=== PATIENT | female | born 1945 | race African-American/Black ===

== ENCOUNTER 2024-02-26 10:35 | Inpatient (IN) | payer OTHER ==
[~2024-02-26] VITALS: Ht 154.9 cm; Wt 50.5 kg
[2024-02-26] MEDS ORDERED: DOCUSATE SOD 100 MG CAP PO PRN (14:45)
[2024-02-26] MEDS ORDERED: MORPHINE SULFATE INJ 2 MG/ml SYRG IV PRN (14:45)
[2024-02-26 14:57] LABS: Basophils # (auto) 0 10 ^3/uL (0-0.2); Basophils % (auto) 0.1 % (0.0-2.0); Eosinophils # (auto) 0 10 ^3/uL (0-0.8); Hemoglobin 10.2 g/dL (12.2-16.2); Lymphocytes # (auto) 0.9 10 ^3/uL (0.4-5.4); Lymphocytes % (auto) 6.3 % (10.0-50.0); Mean Corpuscular Hemoglobin 28.4 pg (28.0-32.0); Mean Corpuscular Volume 91.5 fL (80.0-100.0); Monocytes # (auto) 1.1 10 ^3/uL (0-1.3); Neutrophils # (auto) 11.8 10 ^3/uL (1.6-8.6); Neutrophils % (auto) 85.6 % (37.0-80.0); Nucleated Red Blood Cells % 0.6 %; Red Cell Distribution Width 17.8 % (11.8-14.3); White Blood Cell 13.8 10^3/uL (4.4-10.8)
[2024-02-26 15:07] LABS: Alanine Aminotransferase 12 U/L (7-40); Albumin 3.4 g/dL (3.2-4.8); Alkaline Phosphatase 92 U/L (46-116); Anion Gap 18 (5-15); Aspartate Aminotransferase 20 U/L (13-40); BUN/Creatinine Ratio 5.2 (10.0-20.0); Blood Urea Nitrogen 16 mg/dL (9-23); Calcium 8.6 mg/dL (8.7-10.4); Carbon Dioxide 21 mmol/L (20-30); Chloride 95 mmol/L (98-107); Glucose 128 mg/dL (74-106); Potassium 3.4 mmol/L (3.5-5.1); Sodium 134 mmol/L (136-145)
[2024-02-26 15:08] LABS: Bilirubin, Total < 0.2 mg/dL (0.2-1.0); Total Protein 5.7 g/dL (5.7-8.2)
[2024-02-26 15:11] LABS: Magnesium 2.1 mg/dL (1.6-2.6)
[2024-02-26 16:24] LABS: Phosphorus 3.4 mg/dL (2.4-5.1)
[2024-02-26] MEDS: LABETALOL HCL 5 MG/ML 4ML SYRINGE IV ONE (16:29)
[2024-02-26] MEDS: PANTOPRAZOLE 40 MG/10 ML VIAL INJ IV ONE (16:29)
[2024-02-26] MEDS: DICYCLOMINE HCL (10MG/ML) 2 ML AMPULE IM ONE (16:29)
[2024-02-26] MEDS: DICYCLOMINE HCL 10 MG CAP PO SCH (18:00)
[2024-02-26 19:20] VITALS: PULSE 80; RESP 20; O2SAT 98
[2024-02-27] VITALS (7 sets, daily range): BP systolic 112–154; BP diastolic 42–64; PULSE 77–84; RESP 14–17; TEMP 83–98.6; O2SAT 95–99
[2024-02-27] MEDS ORDERED: DICYCLOMINE HCL 10 MG CAP PO SCH (08:00)
[2024-02-27] MEDS: DICYCLOMINE HCL 10 MG CAP PO ONE (09:12)
[2024-02-27] MEDS: PANTOPRAZOLE 40 MG/10 ML VIAL INJ IV SCH (09:12)
[2024-02-27] MEDS: ENOXAPARIN SOD 30 MG/0.3 ML SYRINGE SC SCH (09:13)
[2024-02-27] MEDS: ONDANSETRON HCL 4 MG/2 ML VIAL IV PRN (09:21)
[2024-02-27 10:13] LABS: Basophils # (auto) 0 10 ^3/uL (0-0.2); Basophils % (auto) 0.2 % (0.0-2.0); Eosinophils # (auto) 0 10 ^3/uL (0-0.8); Hematocrit 35.9 % (36.0-46.0); Hemoglobin 10.8 g/dL (12.2-16.2); Lymphocytes # (auto) 0.9 10 ^3/uL (0.4-5.4); Lymphocytes % (auto) 6.6 % (10.0-50.0); Mean Corpuscular Hgb Conc. 30.2 g/dL (32.0-36.0); Mean Corpuscular Volume 92.7 fL (80.0-100.0); Monocytes % (auto) 7.9 % (0.0-12.0); Neutrophils # (auto) 11.1 10 ^3/uL (1.6-8.6); Neutrophils % (auto) 85.3 % (37.0-80.0); Nucleated Red Blood Cells % 0.1 %; Red Blood Cells 3.87 10^6/uL (4.0-5.20); Red Cell Distribution Width 17.9 % (11.8-14.3); White Blood Cell 13.1 10^3/uL (4.4-10.8)
[2024-02-27 10:14] LABS: Albumin 3.2 g/dL (3.2-4.8); Alkaline Phosphatase 86 U/L (46-116); Anion Gap 17 (5-15); Aspartate Aminotransferase 23 U/L (13-40); BUN/Creatinine Ratio 5.6 (10.0-20.0); Bilirubin, Total < 0.2 mg/dL (0.2-1.0); Calcium 8.4 mg/dL (8.5-10.1); Carbon Dioxide 19 mmol/L (20-30); Chloride 96 mmol/L (98-107); Glucose 174 mg/dL (74-106); Potassium 3.7 mmol/L (3.5-5.1); Sodium 132 mmol/L (136-145); Total Protein 5.7 g/dL (5.7-8.2)
[2024-02-27 11:44] LABS: Alanine Aminotransferase < 9 U/L (7-40); Blood Urea Nitrogen 26 mg/dL (9-23)
[2024-02-27] MEDS: DICYCLOMINE HCL 10 MG CAP PO SCH (14:11)
[2024-02-27] MEDS: ATORVASTATIN 20 MG TAB PO SCH (21:02)
[2024-02-27] MEDS ORDERED: ALEN70TA74 PO (21:25)
[2024-02-27] MEDS ORDERED: CLOT1CRE51 TOP (21:26)
[2024-02-27] MEDS ORDERED: ATOR-507 PO (21:26)
[2024-02-27] MEDS ORDERED: FURO20TA3 PO (21:27)
[2024-02-27] MEDS ORDERED: HYDR50TA47 PO (21:28)
[2024-02-27] MEDS ORDERED: SITA100T7 PO (21:29)
[2024-02-27] MEDS ORDERED: LISI40TA16 PO (21:29)
[2024-02-27] MEDS ORDERED: METH5TAB98 PO (21:31)
[2024-02-27] MEDS ORDERED: NIFE90TA75 PO (21:31)
[2024-02-27] MEDS ORDERED: SEVE800T8 PO (21:31)
[2024-02-28] VITALS (8 sets, daily range): BP systolic 122–170; BP diastolic 50–67; PULSE 69–75; RESP 14–17; TEMP 97.8–99; O2SAT 93–99
[2024-02-28] MEDS ORDERED: SODIUM CHL 0.9% 1000 ML BAG XX ONE (07:00)
[2024-02-28] MEDS: NIFEdipine ER 30 MG TAB PO SCH (08:55)
[2024-02-29 01:05] VITALS: BP 131/62; PULSE 71; RESP 17; TEMP 98.7; O2SAT 96
[2024-02-29 05:04] VITALS: BP 141/60; PULSE 74; RESP 17; TEMP 99.2; O2SAT 96
[2024-02-29 08:00] VITALS: PULSE 69; O2SAT 99
[2024-02-29 09:00] VITALS: BP 139/51; PULSE 70; RESP 17; TEMP 98.6; O2SAT 96
[2024-02-29] MEDS ORDERED: ATOR-507 PO (09:19)
[2024-02-29] MEDS ORDERED: NIFE1TAB30 PO (09:19)
[2024-02-29] MEDS ORDERED: PANT40T PO (09:19)
[2024-02-29 13:00] VITALS: BP 153/41; PULSE 69; RESP 16; TEMP 98.2; O2SAT 94
[2024-02-29 17:00] VITALS: BP 158/47; PULSE 66; RESP 17; TEMP 98.2; O2SAT 97
[2024-03-03 09:29] LABS: Hepatitis B Surface Antibody Positive (Negative)
[2024-03-03 09:41] LABS: Hepatitis B Surface Antigen Negative (Negative)
== END 2024-02-29 19:30 | disposition home or self-care (01) | DRG 871 ==
LOC: ER 10:35 → OVERFLOW 15:50 → TELE 18:30 → TELE-EAST 02-27 04:10
PROVIDERS: ADMIT Nurse Practitioner Family; ATTEND Family Medicine
PROC: 05H933Z Insertion of Infusion Device into Right Brachial Vein, Percutaneous Approach (ICD-10-PCS; 2024-02-26)
PROC: B54MZZA Ultrasonography of Right Upper Extremity Veins, Guidance (ICD-10-PCS; 2024-02-26)
PROC: 5A1D70Z Performance of Urinary Filtration, Intermittent, Less than 6 Hours Per Day (ICD-10-PCS; principal; 2024-02-28)
DX: A41.9 Sepsis, unspecified organism (principal); I21.4 Non-ST elevation (NSTEMI) myocardial infarction; N18.6 End stage renal disease; I12.0 Hypertensive chronic kidney disease with stage 5 chronic kidney disease or end stage renal disease; A09 Infectious gastroenteritis and colitis, unspecified; K80.20 Calculus of gallbladder without cholecystitis without obstruction; D63.1 Anemia in chronic kidney disease; F03.90 Unspecified dementia, unspecified severity, without behavioral disturbance, psychotic disturbance, mood disturbance, and anxiety; E11.22 Type 2 diabetes mellitus with diabetic chronic kidney disease; E05.90 Thyrotoxicosis, unspecified without thyrotoxic crisis or storm; E78.5 Hyperlipidemia, unspecified; I16.0 Hypertensive urgency; I25.2 Old myocardial infarction; Z99.2 Dependence on renal dialysis; Z79.4 Long term (current) use of insulin; Z87.19 Personal history of other diseases of the digestive system
CPT/HCPCS: 36415; 74176; 80053; 83735; 84100; 84443; 84484; 85025; 86706; 87040; 87340; 90935; 93306; 93971; 96372; 96374; 96375; C9113; G0378; J1642; J2405; J3490

== ENCOUNTER 2024-05-17 14:16 | Inpatient (IN) | payer OTHER ==
[~2024-05-17] VITALS: Ht 149.9 cm; Wt 57.3 kg
[~2024-05-17 14:16] MED LIST: ALEN70TA74 PO; ATOR-507 PO; CLOT1CRE51 TOP; FURO20TA3 PO; HYDR50TA47 PO; LISI40TA16 PO; METH5TAB98 PO; NIFE1TAB30 PO; NIFE90TA75 PO; PANT40T PO; SEVE800T8 PO; SITA100T7 PO
[2024-05-17 14:38] LABS: Basophils # (auto) 0.1 10 ^3/uL (0-0.2); Basophils % (auto) 0.7 % (0.0-2.0); Eosinophils # (auto) 0.1 10 ^3/uL (0-0.8); Eosinophils % (auto) 1.6 % (0.0-7.0); Hematocrit 33.7 % (36.0-46.0); Lymphocytes # (auto) 0.9 10 ^3/uL (0.4-5.4); Lymphocytes % (auto) 12.2 % (10.0-50.0); Mean Corpuscular Hemoglobin 29.6 pg (28.0-32.0); Mean Corpuscular Hgb Conc. 32.7 g/dL (32.0-36.0); Mean Corpuscular Volume 90.6 fL (80.0-100.0); Monocytes # (auto) 0.5 10 ^3/uL (0-1.3); Monocytes % (auto) 7.5 % (0.0-12.0); Neutrophils # (auto) 5.5 10 ^3/uL (1.6-8.6); Nucleated Red Blood Cells % 0.1 %; Red Blood Cells 3.72 10^6/uL (4.0-5.20); Red Cell Distribution Width 17.8 % (11.8-14.3); White Blood Cell 7.1 10^3/uL (4.4-10.8)
[2024-05-17 14:56] LABS: Alanine Aminotransferase 62 U/L (7-40); Albumin 3.6 g/dL (3.2-4.8); Alkaline Phosphatase 112 U/L (46-116); Anion Gap 9 (5-15); Aspartate Aminotransferase 28 U/L (13-40); BUN/Creatinine Ratio 4.5 (10.0-20.0); Blood Urea Nitrogen 21 mg/dL (9-23); Calcium 8.6 mg/dL (8.7-10.4); Carbon Dioxide 26 mmol/L (20-30); Chloride 105 mmol/L (98-107); Glucose 179 mg/dL (74-106); Potassium 4.5 mmol/L (3.5-5.1); Sodium 140 mmol/L (136-145)
[2024-05-17 14:57] LABS: Bilirubin, Total 0.2 mg/dL (0.2-1.0); Total Protein 6.1 g/dL (5.7-8.2)
[2024-05-17] MEDS: ASPirin 81 mg TAB PO ONE (15:40)
[2024-05-17] MEDS: ACETAMINOPHEN 325 MG TAB PO ONE (15:40)
[2024-05-17 16:03] LABS: Basophils # (auto) 0.1 10 ^3/uL (0-0.2); Eosinophils # (auto) 0.1 10 ^3/uL (0-0.8); Eosinophils % (auto) 1.6 % (0.0-7.0); Hematocrit 35.2 % (36.0-46.0); Hemoglobin 11.6 g/dL (12.2-16.2); Lymphocytes % (auto) 13.6 % (10.0-50.0); Mean Corpuscular Hgb Conc. 32.9 g/dL (32.0-36.0); Mean Corpuscular Volume 91.3 fL (80.0-100.0); Monocytes # (auto) 0.6 10 ^3/uL (0-1.3); Monocytes % (auto) 8.4 % (0.0-12.0); Neutrophils # (auto) 5.8 10 ^3/uL (1.6-8.6); Neutrophils % (auto) 75.4 % (37.0-80.0); Nucleated Red Blood Cells % 0.1 %; Red Blood Cells 3.86 10^6/uL (4.0-5.20); White Blood Cell 7.7 10^3/uL (4.4-10.8)
[2024-05-17 16:23] LABS: Alanine Aminotransferase 63 U/L (7-40); Albumin 3.9 g/dL (3.2-4.8); Alkaline Phosphatase 119 U/L (46-116); Anion Gap 9 (5-15); Aspartate Aminotransferase 26 U/L (13-40); Blood Urea Nitrogen 14 mg/dL (9-23); Calcium 8.9 mg/dL (8.7-10.4); Carbon Dioxide 24 mmol/L (20-30); Chloride 104 mmol/L (98-107); Glucose 188 mg/dL (74-106); Potassium 4.5 mmol/L (3.5-5.1); Sodium 137 mmol/L (136-145)
[2024-05-17 16:24] LABS: Bilirubin, Total 0.2 mg/dL (0.2-1.0); Total Protein 6.9 g/dL (5.7-8.2)
[2024-05-17] MEDS ORDERED: ONDANSETRON HCL 4 MG/2 ML VIAL IV PRN (17:45)
[2024-05-17] MEDS ORDERED: MORPHINE SULFATE INJ 2 MG/ml SYRG IV PRN (17:45)
[2024-05-17] MEDS ORDERED: NITROGLYCERIN 0.4 MG SL TAB SL PRN (17:45)
[2024-05-17 19:00] VITALS: PULSE 57; RESP 12; O2SAT 97
[2024-05-17] MEDS: SODIUM CHLORIDE 0.9% 1,000 ML IV SCH (19:11)
[2024-05-17] MEDS: hydrALAZINE HCL 20 MG/ML VL IV PRN (22:06)
[2024-05-17 23:23] VITALS: BP 172/79; PULSE 81; RESP 19; TEMP 98.2; O2SAT 93
[2024-05-17 23:34] VITALS: BP 172/79; PULSE 81; RESP 19; TEMP 98.4; O2SAT 93
[2024-05-18] VITALS (13 sets, daily range): BP systolic 140–203; BP diastolic 54–103; PULSE 64–89; RESP 16–26; TEMP 97.9–98.9; O2SAT 94–97
[2024-05-18] MEDS: HYDROcodone-ACET 5/325MG TAB PO PRN (09:24)
[2024-05-18] MEDS: SODIUM CHL 0.9% 1000 ML BAG XX ONE (12:45)
[2024-05-18] MEDS: ASPirin 81 mg TAB PO SCH (18:17)
[2024-05-18] MEDS: CLOPIDOGREL BISULFATE 75 MG TAB PO SCH (18:17)
[2024-05-18] MEDS: FUROSEMIDE 20 MG TAB PO ONE (18:18)
[2024-05-18] MEDS: LISINOPRIL 20 MG TAB PO ONE (18:19)
[2024-05-18] MEDS: ACETAMINOPHEN 325 MG TAB PO PRN (21:38)
[2024-05-19] VITALS (7 sets, daily range): BP systolic 166–216; BP diastolic 54–80; PULSE 70–75; RESP 16–24; TEMP 36.8; O2SAT 94–97
[2024-05-19 07:24] LABS: Anion Gap 6 (5-15); Calcium 9.3 mg/dL (8.7-10.4); Carbon Dioxide 28 mmol/L (20-30); Chloride 106 mmol/L (98-107); Potassium 4.8 mmol/L (3.5-5.1); Sodium 140 mmol/L (136-145)
[2024-05-19 07:28] LABS: Basophils # (auto) 0.1 10 ^3/uL (0-0.2); Basophils % (auto) 1.1 % (0.0-2.0); Eosinophils # (auto) 0.1 10 ^3/uL (0-0.8); Eosinophils % (auto) 1.2 % (0.0-7.0); Hematocrit 31.3 % (36.0-46.0); Hemoglobin 10.5 g/dL (12.2-16.2); Lymphocytes % (auto) 13.5 % (10.0-50.0); Mean Corpuscular Hemoglobin 30.1 pg (28.0-32.0); Mean Corpuscular Hgb Conc. 33.4 g/dL (32.0-36.0); Mean Corpuscular Volume 90.2 fL (80.0-100.0); Monocytes # (auto) 0.6 10 ^3/uL (0-1.3); Monocytes % (auto) 7.7 % (0.0-12.0); Neutrophils # (auto) 5.5 10 ^3/uL (1.6-8.6); Neutrophils % (auto) 76.5 % (37.0-80.0); Red Blood Cells 3.47 10^6/uL (4.0-5.20); Red Cell Distribution Width 17.7 % (11.8-14.3); White Blood Cell 7.2 10^3/uL (4.4-10.8)
[2024-05-19 07:30] LABS: BUN/Creatinine Ratio 5.2 (10.0-20.0); Blood Urea Nitrogen 21 mg/dL (9-23); Glucose 102 mg/dL (74-106); Magnesium 1.8 mg/dL (1.6-2.6)
[2024-05-19] MEDS: FUROSEMIDE 20 MG TAB PO SCH (09:04)
[2024-05-19] MEDS: LISINOPRIL 20 MG TAB PO SCH (09:06)
[2024-05-19] MEDS: NIFEdipine ER 30 MG TAB PO SCH (09:11)
[2024-05-19 09:30] LABS: Hepatitis B Surface Antibody Positive (Negative)
[2024-05-19 09:42] LABS: Hepatitis B Surface Antigen Negative (Negative)
[2024-05-19] MEDS ORDERED: CLOP75TA28 PO (16:14)
[2024-05-19] MEDS ORDERED: ASPI-543 PO (16:14)
[2024-05-19] MEDS: hydrALAZINE HCL 25 MG TAB PO ONE (17:17)
== END 2024-05-19 19:10 | disposition home health service (06) | DRG 280 ==
LOC: ER 14:20 → TELE 17:34 → TELE-CENTR 23:10
PROVIDERS: ADMIT Internal Medicine; ATTEND Internal Medicine
PROC: 5A1D70Z Performance of Urinary Filtration, Intermittent, Less than 6 Hours Per Day (ICD-10-PCS; principal; 2024-05-18)
DX: I13.2 Hypertensive heart and chronic kidney disease with heart failure and with stage 5 chronic kidney disease, or end stage renal disease (principal); I50.33 Acute on chronic diastolic (congestive) heart failure; I21.A1 Myocardial infarction type 2; N18.6 End stage renal disease; D63.1 Anemia in chronic kidney disease; E11.22 Type 2 diabetes mellitus with diabetic chronic kidney disease; F03.90 Unspecified dementia, unspecified severity, without behavioral disturbance, psychotic disturbance, mood disturbance, and anxiety; I25.10 Atherosclerotic heart disease of native coronary artery without angina pectoris; E78.5 Hyperlipidemia, unspecified; E83.39 Other disorders of phosphorus metabolism; E03.9 Hypothyroidism, unspecified; Z82.49 Family history of ischemic heart disease and other diseases of the circulatory system; Z99.2 Dependence on renal dialysis; Z79.82 Long term (current) use of aspirin; Z79.899 Other long term (current) drug therapy; Z79.4 Long term (current) use of insulin
CPT/HCPCS: 36415; 71045; 80048; 80053; 83735; 84443; 84484; 85025; 86706; 87081; 87340; 90935; 93005; 97110; 97116; 97163; 97530; G0378

== ENCOUNTER 2024-06-04 17:20 | Inpatient (IN) | payer OTHER ==
[~2024-06-04] VITALS: Ht 149.9 cm; Wt 53.4 kg
[~2024-06-04 17:20] MED LIST changes: +ASPI-543 PO; +CLOP75TA28 PO; -CLOT1CRE51 TOP; -NIFE1TAB30 PO
[2024-06-04 18:13] LABS: Basophils # (auto) 0.1 10 ^3/uL (0-0.2); Basophils % (auto) 1.2 % (0.0-2.0); Eosinophils # (auto) 0.3 10 ^3/uL (0-0.8); Monocytes # (auto) 0.6 10 ^3/uL (0-1.3); Monocytes % (auto) 7.7 % (0.0-12.0)
[2024-06-04 18:16] LABS: Eosinophils % (auto) 3.6 % (0.0-7.0); Hematocrit 21.5 % (36.0-46.0); Lymphocytes % (auto) 26.4 % (10.0-50.0); Mean Corpuscular Hemoglobin 30.1 pg (28.0-32.0); Mean Corpuscular Hgb Conc. 32.4 g/dL (32.0-36.0); Neutrophils # (auto) 4.6 10 ^3/uL (1.6-8.6); Neutrophils % (auto) 61.1 % (37.0-80.0); Nucleated Red Blood Cells % 0.2 %; Red Blood Cells 2.31 10^6/uL (4.0-5.20); Red Cell Distribution Width 16.8 % (11.8-14.3); White Blood Cell 7.5 10^3/uL (4.4-10.8)
[2024-06-04] MEDS: cloNIDine HCL 0.1 MG TAB PO ONE (21:14)
[2024-06-04 23:25] VITALS: BP 134/35; PULSE 68; RESP 16; TEMP 98.5
[2024-06-04 23:45] VITALS: BP 141/35; PULSE 65; RESP 17; TEMP 98.6
[2024-06-05] VITALS (8 sets, daily range): BP systolic 149–171; BP diastolic 41–69; PULSE 61–71; RESP 15–20; TEMP 97.9–98.8; O2SAT 95–98
[2024-06-05 03:44] LABS: Chloride 107 mmol/L (98-107); Potassium 4.5 mmol/L (3.5-5.1); Sodium 141 mmol/L (136-145)
[2024-06-05 03:45] LABS: Anion Gap 5 (5-15); Carbon Dioxide 29 mmol/L (20-30)
[2024-06-05 03:47] LABS: Hemoglobin 7.4 g/dL (12.2-16.2)
[2024-06-05 03:49] LABS: Hematocrit 22.2 % (36.0-46.0)
[2024-06-05 03:50] LABS: BUN/Creatinine Ratio 4.7 (10.0-20.0); Blood Urea Nitrogen 15 mg/dL (9-23); Glucose 109 mg/dL (74-106)
[2024-06-05] MEDS ORDERED: ACETAMINOPHEN 325 MG TAB PO PRN (04:15)
[2024-06-05] MEDS ORDERED: MORPHINE SULFATE INJ 2 MG/ml SYRG IV PRN (04:15)
[2024-06-05] MEDS ORDERED: ONDANSETRON HCL 4 MG/2 ML VIAL IV PRN ×2 (04:15→04:30)
[2024-06-05] MEDS ORDERED: cloNIDine HCL 0.1 MG TAB PO PRN (04:15)
[2024-06-05] MEDS ORDERED: NITROGLYCERIN 0.4 MG SL TAB SL PRN (04:15)
[2024-06-05] MEDS ORDERED: HYDROcodone-ACET 5/325MG TAB PO PRN (04:15)
[2024-06-05 04:32] LABS: Basophils # (auto) 0.1 10 ^3/uL (0-0.2); Eosinophils # (auto) 0.1 10 ^3/uL (0-0.8); Lymphocytes # (auto) 1.6 10 ^3/uL (0.4-5.4); Monocytes # (auto) 0.6 10 ^3/uL (0-1.3); Neutrophils # (auto) 3.8 10 ^3/uL (1.6-8.6); White Blood Cell 6.1 10^3/uL (4.4-10.8)
[2024-06-05 04:38] LABS: Basophils % (auto) 1.2 % (0.0-2.0); Hemoglobin 7.4 g/dL (12.2-16.2); Lymphocytes % (auto) 25.9 % (10.0-50.0); Mean Corpuscular Hgb Conc. 33.6 g/dL (32.0-36.0); Mean Corpuscular Volume 92.3 fL (80.0-100.0); Monocytes % (auto) 9.8 % (0.0-12.0); Neutrophils % (auto) 61.1 % (37.0-80.0); Nucleated Red Blood Cells % 0.1 %; Red Blood Cells 2.38 10^6/uL (4.0-5.20); Red Cell Distribution Width 15.9 % (11.8-14.3)
[2024-06-05] MEDS: PANTOPRAZOLE 40mg/50ML NS AE 50 ML IV ONE (04:40)
[2024-06-05] MEDS: hydrALAZINE HCL 20 MG/ML VL IV PRN (04:40)
[2024-06-05] MEDS ORDERED: DEXTROSE (50%) 50ML SYRG IV PRN (05:00)
[2024-06-05] MEDS: ACCU-CHEK COMFORT CURVE STRIP VI SCH (06:23)
[2024-06-05] MEDS: InsuLIN REG 1unit/0.01ml Soln (100units/ml) SC SCH (06:23)
[2024-06-05 10:56] LABS: INR 1.06 (0.9-1.15); Partial Thromboplastin Time 27.5 SEC (24.5-34.5); Prothrombin Time 11.2 sec (9.3-11.8)
[2024-06-05 12:19] LABS: Hemoglobin 7.4 g/dL (12.2-16.2)
[2024-06-05 12:22] LABS: Hematocrit 22.3 % (36.0-46.0)
[2024-06-05] MEDS: SEVELAMER 800 MG TAB PO SCH (12:33)
[2024-06-05] MEDS: hydrALAZINE HCL 25 MG TAB PO SCH (12:33)
[2024-06-05] MEDS: PANTOPRAZOLE 40 MG/10 ML VIAL INJ IV SCH (12:33)
[2024-06-05 19:40] LABS: Hemoglobin 8.2 g/dL (12.2-16.2)
[2024-06-05] MEDS: ATORVASTATIN 20 MG TAB PO SCH (20:54)
[2024-06-06] VITALS (7 sets, daily range): BP systolic 137–202; BP diastolic 61–81; PULSE 59–69; RESP 15–18; TEMP 97.6–99; O2SAT 95–100
[2024-06-06 00:40] LABS: Hematocrit 22.5 % (36.0-46.0); Hemoglobin 7.4 g/dL (12.2-16.2)
[2024-06-06] MEDS: SODIUM CHL 0.9% 1000 ML BAG XX ONE (07:00)
[2024-06-06 07:09] LABS: Anion Gap 8 (5-15); Carbon Dioxide 26 mmol/L (20-30); Chloride 104 mmol/L (98-107); Potassium 4.6 mmol/L (3.5-5.1); Sodium 138 mmol/L (136-145)
[2024-06-06 07:10] LABS: Calcium 8.5 mg/dL (8.7-10.4)
[2024-06-06 07:15] LABS: BUN/Creatinine Ratio 4.9 (10.0-20.0); Glucose 88 mg/dL (74-106)
[2024-06-06 07:17] LABS: Blood Urea Nitrogen 26 mg/dL (9-23)
[2024-06-06 07:27] LABS: Basophils # (auto) 0.1 10 ^3/uL (0-0.2); Eosinophils # (auto) 0.2 10 ^3/uL (0-0.8); Eosinophils % (auto) 3.6 % (0.0-7.0); Monocytes # (auto) 0.5 10 ^3/uL (0-1.3); Nucleated Red Blood Cells % 0.1 %; Red Cell Distribution Width 16.1 % (11.8-14.3)
[2024-06-06 07:31] LABS: Basophils % (auto) 1.5 % (0.0-2.0); Hemoglobin 7.9 g/dL (12.2-16.2); Lymphocytes # (auto) 1.5 10 ^3/uL (0.4-5.4); Lymphocytes % (auto) 22.9 % (10.0-50.0); Mean Corpuscular Hemoglobin 30.3 pg (28.0-32.0); Mean Corpuscular Hgb Conc. 32.8 g/dL (32.0-36.0); Mean Corpuscular Volume 92.4 fL (80.0-100.0); Monocytes % (auto) 7.1 % (0.0-12.0); Neutrophils # (auto) 4.2 10 ^3/uL (1.6-8.6); Neutrophils % (auto) 64.9 % (37.0-80.0); White Blood Cell 6.5 10^3/uL (4.4-10.8)
[2024-06-06] MEDS: methIMAzole 5 MG TAB PO SCH (12:02)
[2024-06-06] MEDS: NIFEdipine ER 30 MG TAB PO SCH (12:03)
[2024-06-06] MEDS ORDERED: PANT40T PO (13:06)
[2024-06-06] MEDS ORDERED: EPOETIN ALFA-EPBX 10,000 UNIT/1ML VIAL SC ONE (21:00)
== END 2024-06-06 19:50 | disposition home or self-care (01) | DRG 291 ==
LOC: EDBD 17:20 → ER 17:20 → TELE 06-05 04:15 → ER 06-05 04:22 → TELE-WESTW 06-05 14:41
PROVIDERS: ADMIT Nurse Practitioner Family; ATTEND Hospitalist
PROC: 30233N1 Transfusion of Nonautologous Red Blood Cells into Peripheral Vein, Percutaneous Approach (ICD-10-PCS; principal; 2024-06-04)
DX: I13.2 Hypertensive heart and chronic kidney disease with heart failure and with stage 5 chronic kidney disease, or end stage renal disease (principal); N18.6 End stage renal disease; D63.1 Anemia in chronic kidney disease; I50.22 Chronic systolic (congestive) heart failure; E11.22 Type 2 diabetes mellitus with diabetic chronic kidney disease; I25.10 Atherosclerotic heart disease of native coronary artery without angina pectoris; E78.5 Hyperlipidemia, unspecified; Z99.2 Dependence on renal dialysis; Z83.3 Family history of diabetes mellitus; Z90.710 Acquired absence of both cervix and uterus; Z79.82 Long term (current) use of aspirin
CPT/HCPCS: 36415; 36430; 74176; 80048; 82962; 85014; 85018; 85025; 85610; 85730; 86850; 86900; 86901; 86920; 87340; 90935; G0378; J2470

== ENCOUNTER 2024-12-09 17:58 | Emergency (ER) | payer OTHER ==
[~2024-12-09] VITALS: Ht 157.5 cm; Wt 63.6 kg
[~2024-12-09 17:58] MED LIST changes: -ASPI-543 PO; -CLOP75TA28 PO
[2024-12-09 18:05] VITALS: BP 194/61; PULSE 74; RESP 16; O2SAT 96
--- NOTE | 2024-12-09 20:07 | DVH ---
LEFT Upper Extremity Venous Duplex Clinical History: left hand pain Comparison: None Technique: Duplex Doppler evaluation of the venous system of the LEFT lower neck and upper extremity including color Doppler and spectral/pulsed waveform analysis was performed. Findings: Internal jugular vein demonstrates appropriate compressibility and waveform variability . Subclavian vein is patent on color Doppler evaluation without intraluminal thrombus and demonstrates waveform variability . Visualized portion of the brachiocephalic vein is patent on color Doppler evaluation without intralum inal thrombus and demonstrates waveform variability . Axillary vein demonstrates appropriate compressibility and waveform variability . Brachial veins demonstrate appropriate compressibility and patency on Doppler evaluation. Basilic vein not well visualized. Cephalic vein not well visualized. Radial and ulnar veins are patent. Impression: No evidence of venous thrombus identified in visualized LEFT upper extremity vessels evaluated above.
--- NOTE | 2024-12-09 20:43 | ED.PDOC ---
Musculoskeletal HPI Comments 79-year-old female complaining of left hand pain. Patient states one week ago she had a procedure on left bicep, they are transitioning her Port-A-Cath to a fistula on the bicep. Patient receives hemodialysis. Patient states port was not placed in the left biceps yet. Says she has been started to have pain over the last three or four days. Chief Complaint: Upper Extremity Time Seen by MD: 18:14 Primary Care Provider: unknown Reviewed Notes: Nurses Notes Allergies: Coded Allergies: No Known Drug Allergy (Verified Allergy, Unknown, 02/26/24) Home Meds Active Scripts Pantoprazole Sodium Sesquihydr (Pantoprazole Sodium) 40 Mg Tab, 40 MG PO BID, #30 TAB Prov:SUMAYA CROSS MD 06/06/24 Pantoprazole Sodium Sesquihydr (Pantoprazole Sodium) 40 Mg Tab, 40 MG PO BID, #60 TAB Prov:SHARAN GODOY MD 02/29/24 Reported Medications Sevelamer Carbonate (Renvela) 800 Mg Tab, 800 MG PO TIDWM for 30 Days, MG 02/27/24 Nifedipine (Nifedipine Er) 90 Mg Tab, 90 MG PO DAILY for 30 Days, #30 TAB 02/27/24 Methimazole (Methimazole) 5 Mg Tab, 5 MG PO DAILY for 30 Days, #30 TAB 02/27/24 Lisinopril (Lisinopril) 40 Mg Tab, 40 MG PO DAILY for 30 Days, MG 02/27/24 Sitagliptin Phosphate (Januvia) 100 Mg Tab, 100 MG PO DAILY for 30 Days, #30 TAB 02/27/24 Hydralazine Hcl (Hydralazine Hcl) 50 Mg Tab, 50 MG PO TID for 30 Days, #90 TAB 02/27/24 Furosemide (Furosemide) 20 Mg Tab, 20 MG PO DAILY for 30 Days, MG 02/27/24 Atorvastatin Calcium (Lipitor) 40 Mg Tab, 40 MG PO QHSP for 30 Days, #30 TAB 02/27/24 Alendronate Sodium (Alendronate Sodium) 70 Mg Tab, 70 MG PO Q7D for 30 Days, #30 TAB 02/27/24 Information Source: Patient Mode of Arrival: EMS Location: Left Extremity Location: Arm Past Medical History PAST MEDICAL HISTORY: CKF, Dementia, DM, High Lipids, HTN, Thyroid Surgical History: Hysterectomy MANAGER KNOWLEDGE History: Denies all MANAGER KNOWLEDGE Hx Family History Family History: Reviewed,noncontributory to illness, Family hx of DM Social History Smoker: Non-Smoker Alcohol: Denies ETOH Use Drugs: Denies Drug Use Lives In: Home Constitutional: denies: chills, diaphoresis, fatigue, fever, malaise, sweats, weakness, others EENTM: denies: blurred vision, double vision, ear bleeding, ear discharge, ear drainage, ear pain, ear ringing, eye pain, eye redness, hearing loss, mouth pain, mouth swelling, nasal discharge, nose bleeding, nose congestion, nose pain, photophobia, tearing, throat pain, throat swelling, voice changes, others Respiratory: denies: cough, hemoptysis, orthopnea, SOB at rest, shortness of breath, SOB with excertion, stridor, wheezing, others Cardiovascular: denies: chest pain, dizzy spells, diaphoresis, Dyspnea on exertion, edema, irregular heart beat, left arm pain, lightheadedness, palpitations, PND, syncope, others Gastrointestinal: denies: abdomen distended, abdominal pain, blood streaked bowels, constipated, diarrhea, dysphagia, difficulty swallowing, hematemesis, melena, nausea, poor appetite, poor fluid intake, rectal bleeding, rectal pain, vomiting, others Genitourinary: denies: abnormal vagina bleeding, burning, dyspareunia, dysuria, flank pain, frequency, hematuria, incontinence, pain, , vagina d ischarge, urgency, others Neurological: denies: dizziness, fainting, headache, left sided numbness, left sided weakness, numbness, paresthesia, pre-existing deficit, right sided numbness, right sided weakness, seizure, speech problems, tingling, tremors, weakness, others Musculoskeletal: reports: muscle pain, muscle stiffness; denies: back pain, gout, joint pain, joint swelling, neck pain, others Integumetry: denies: bruises, change in color, change in hair/nails, dryness, laceration, lesions, lumps, rash, wounds, others Allergic/Immunocompromised: denies: Difficulty Healing, Frequent Infections, Hives, Itching, others Hematologic/Lymphatic: denies: anemia, blood clots, easy bleeding, easy bruising, swollen glands, others Endocrine: denies: excessive hunger, excessive sweating, excessive thirst, excessive urination, flushing, intolerance to cold, intolerance to heat, unexplained weight gain, unexplained weight loss, others Psychiatric: denies: anxiety, bipolar disorder, depression, hopeless, panic disorder, schizophrenia, sleepless, suicidal, others Physical Exam General Appearance: No Apparent Distress, Normal HEENT: Normal ENT Inspection, Pharynx Normal, TMs Normal Neck: Full Range of Motion, Non-Tender, Normal, Normal Inspection Respiratory: Chest Non-Tender, Lungs Clear, No Accessory Muscle Use, No Respiratory Distress, Normal Breath Sounds Cardiovascular: No Edema, No JVD, No Murmur, No Gallop, Normal Peripheral Pulses, Regular Rate/Rhythm Breast Exam: Deferred Gastrointestinal: No Organomegaly, Non Tender, No Pulsatile Mass, Normal Bowel Sounds, Soft Genitalia: Deferred Pelvic: Deferred Rectal: Deferred Extremities: No calf tenderness, Normal capillary refill, Normal inspection, Normal range of motion, Non-tender, No pedal edema Musculoskeletal : Location: Left Extremity Location: Arm (WNL) Apperance: Normal Neurologic: Alert, shredded filler cigar maker machine II-XII nml as Tested, No Motor Deficits, Normal Affect, Normal Mood, No Sensory Deficits Cerebellar Function: Normal Reflexes: Normal Skin: Dry, Normal Color, Warm Peripheral Pulses: 1+ Radial (R), 1+ Radial (L) Lymphatic: No Adenopathy Was a procedure done? Was a procedure done?: No Differential Diagnosis EXT Differential Diagnosis: Cellulitis, CHF, Deep Vein Thrombosis, Compartment Syndrome X-Ray, Labs, Meds, VS Vital Signs Date Time Temp Pulse Resp B/P (MAP) Pulse Ox O2 Delivery O2 Flow Rate FiO2 12/09/24 18:05 98.2 74 16 194/61 (105) 96 X-Ray, Labs, Meds, VS Comment Imaging: X-rays and CT scans were reviewed and interpreted by this provider, imaging shows no fractures and no pathological disease. Pending radiology review. Laboratory: Labs reviewed and interpreted by this provider. No significant abnormalities noted. Patient has prior medical visits reviewed. Med reconciliation performed Vital signs reviewed Time of 1ST Reevaluation: 20:46 Reevaluation 1ST: Improved Patient Education/Counseling: Diagnosis, Treatment, Need For Follow Up (Patient advised to follow-up in the emergency room in the next 24 to 48 hours if symptoms do not improve. Advised follow-up with PCP in the next 3 to 5 days. Patient verbalized understanding. ) Family Education/Counseling: Diagnosis, Treatment Departure 1 Departure Time of Disposition: 20:46 Impression: Primary Impression: Left arm pain Disposition: 01 HOME / SELF CARE / HOMELESS Condition: Fair Discharged With: Self Critical Care Note Critical Care Time?: No Stability Stability form required: No Heart Score Heart Score: Heart Score Response (Comments) Value History N/A 0 EKG N/A 0 Age N/A 0 Risk Factors N/A 0 Troponin N/A 0 Total 0 JACKY VILLALOBOS TAILOR HELPER Dec 09, 2024 20:42
== END 2024-12-09 23:53 | disposition home or self-care (01) ==
LOC: ER 17:58 → EDBD 17:58 → ER 23:53
DX: M79.602 Pain in left arm (principal); F03.90 Unspecified dementia, unspecified severity, without behavioral disturbance, psychotic disturbance, mood disturbance, and anxiety; E78.5 Hyperlipidemia, unspecified; I12.9 Hypertensive chronic kidney disease with stage 1 through stage 4 chronic kidney disease, or unspecified chronic kidney disease; E11.22 Type 2 diabetes mellitus with diabetic chronic kidney disease; N18.9 Chronic kidney disease, unspecified; E07.9 Disorder of thyroid, unspecified; Z90.710 Acquired absence of both cervix and uterus
CPT/HCPCS: 93971